=== PATIENT | female | born 1975 | race Hispanic/Latino ===

== ENCOUNTER 2024-04-06 17:16 | Emergency (ER) | payer BC, SELFPAY ==
[2024-04-06 18:13] LABS: ALT/SGPT 31 U/L (13-56); AST/SGOT 14 U/L (15-37); Albumin 3.3 g/dL (3.4-5.0); Albumin/Globulin Ratio 0.8 (1.1-1.8); Alkaline Phosphatase 91 U/L (45-117); Anion Gap 8.5 mEq/L (5.0-15.0); BUN Blood Urea Nitrogen 14 mg/dL (7-18); Bicarbonate 25 mEq/L (21-32); Bilirubin Total 0.2 mg/dL (0.2-1.0); Globulin 4.1 g/dL (2.3-3.5); Glomerular Filtration Rate 100 ml/min (=/>90); Glucose Level 116 mg/dL (74-106); Magnesium 1.9 mg/dL (1.6-2.4); NT PRO-BNP 93 pg/mL (<125); Potassium 3.5 mEq/L (3.5-5.1); Protein, Total 7.4 g/dL (6.4-8.2); Sodium Level 138 mEq/L (136-145)
[2024-04-06 18:14] LABS: Absolute Eosinophils 0.1 K/uL (0-0.5); Absolute Lymphocytes (CBC) 2.7 K/uL (0.7-4.9); Absolute Monocytes 0.4 K/uL (0.1-1.3); Absolute Neutrophil 3.6 K/uL (1.8-8.0); Basophils % 0.3 % (0-1.3); Hematocrit 39.2 % (36.0-45.0); Hemoglobin 13.3 g/dL (12.0-15.0); MCH 29.8 pg (27.0-35.0); MCHC 33.9 g/dL (32.0-36.0); MPV 7.2 fL (7.6-11.3); Monocytes % 6.1 % (3.3-12.3); Neutrophils % 52.6 % (41.7-73.7); Nucleated Red Blood Cells % 0.2 % (0-0); Platelets 169 thou/uL (152-406); RBC Red Blood Cell Count 4.46 M/uL (3.86-4.86); Red Cell Distribution Width 12.9 % (12.1-15.2)
[2024-04-06 18:15] LABS: Bilirubin Direct < 0.2 mg/dL (0-0.2); Troponin High Sensitivity < 3.0 pg/mL (<58.9)
[2024-04-06] MEDS ORDERED: ONDANSETRON 4 MG/2 ML VIAL ONE (18:28)
[2024-04-06] MEDS ORDERED: MORPHINE 4 MG/ML SYR ONE (18:28)
[2024-04-06] MEDS ORDERED: FAMOTIDINE 20 MG/2 ML VIAL IV ONE (18:28)
[2024-04-06 18:32] LABS: PT Prothrombin Time 11.5 SECONDS (9.4-12.5); Protime INR 1.1
--- NOTE | 2024-04-06 18:49 | RAD REPORT ---
EXAM: Chest Single View HISTORY: CHEST PAIN COMPARISON: None. FINDINGS: LUNGS/PLEURA: The lungs are clear. No pleural effusions or pneumothorax. No pulmonary edema. MEDIASTINUM: The mediastinal silhouette is within normal limits. CARDIAC: The cardiac silhouette is within normal limits. UPPER ABDOMEN: No significant abnormality. BONES: No acute abnormality. LINES/TUBES/OTHER: Pacemaker/ICD. IMPRESSION: No evidence of acute cardiopulmonary disease.
[2024-04-06] MEDS ORDERED: METHYLPREDNISOLONE 125 MG INJ ONE (19:19)
[2024-04-06] MEDS ORDERED: DIPHENHYDRAMINE 50 MG/ML VIAL ONE (19:19)
--- NOTE | 2024-04-06 20:11 | RAD REPORT ---
EXAMINATION: CT HEAD WITHOUT CONTRAST CLINICAL INDICATION: Female, 48 years old.HEADACHE TECHNIQUE: Axial CT images from the skull base to the vertex without intravenous contrast. Coronal an d sagittal reformatted images were created from the data set. One or more of the following dose reduction techniques were used: Automated exposure control, adjustment of the mA and/or kV according to patient size, and/or iterative reconstruction. Unless otherwise specified, incidental findings do not require dedicated imaging follow-up. [id number]. COMPARISON: No prior exam. FINDINGS: INTRACRANIAL: No acute intracranial hemorrhage. No hydrocephalus. No mass effect or midline shift. No significant white matter disease. VASCULATURE: No visualized abnormalities in the arteries or dural venous sinuses. SCALP/SKULL: No significant soft tissue or osseous abnormalities. SINUSES: The visualized paranasal sinuses and mastoid air cells are predominantly clear. IMPRESSION: No acute intracranial abnormality.
--- NOTE | 2024-04-06 20:16 | RAD REPORT ---
EXAMINATION: CTA CHEST AORTA CLINICAL INDICATION: Female, 48 years old [facility] MAIN CHEST PAIN TECHNIQUE: This examination was performed according to an angiographic protocol with 3D post-processi ng. This involves 3D reconstructions, MIPs, volume rendered images and/or shaded surface rendering. One or more of the following dose reduction techniques were used: Automated exposure control, adjustm ent of the mA and/or kV according to patient size, and/or iterative reconstruction. Unless otherwise specified, incidental findings do not require dedicated imaging follow-up. [id number]. COMPARISON: No prior exam. FINDINGS: LOWER NECK: Visualized thyroid gland and soft tissues are normal. Left upper chest wall pacemaker. LUNGS AND AIRWAYS: Airways are clear. No evidence of airspace or interstitial process.No suspicious a nd/or stable pulmonary nodules. PLEURA: No pleural effusion. No pneumothorax. Hemidiaphragms are normally positioned. MEDIASTINUM AND LYMPH NODES: No mediastinal mass or fluid collection. Normal size mediastinal, hilar, and axillary lymph nodes. THORACIC AORTA: No thoracic aortic aneurysm. PULMONARY ARTERIES: Caliber is within normal limits. No pulmonary embolus. HEART: Normal heart size. No coronary calcifications.No significant pericardial effusion. OSSEOUS STRUCTURES AND CHEST WALL: No fracture or suspicious osseous lesions. UPPER ABDOMEN: No significant abnormalities.Fat-containing left adrenal lesion consistent with a myel olipoma. This does not require follow-up. IMPRESSION: Normal caliber and configuration of the thoracic aorta without acute changes. Negative for pulmonary embolism with acute findings in the chest.
--- NOTE | 2024-04-06 21:32 | EDPHYS ---
Physician Documentation [facility] Name: Mindy Guardian Age: 48 yrs Sex: Female : 1975 Arrival Date: 04/06/2024 Time: 17:16 Bed 5 Private MD: ED Physician Melvin Grant HPI: 04/06 17:40 This 48 yrs old Female presents to ER via Ambulatory with complaints of cp Headache, Chest Pain. 17:40 The patient complains of pain to the general. The patient describes the headache as cp aching. Onset: The symptoms/episode began/occurred just prior to arrival. The patient or guardian reports chest pain that is located primarily in the anterior chest wall, left. The pain radiates to left back. Associated signs and symptoms: Pertinent negatives: altered mental status, fever, neck stiffness, paresthesias, Photophobia. TORPEDO SPECIALIST: 17:30 LMP N/A - Hysterectomy, Not db Historical: - Allergies: 17:30 Iodine; db 17:30 Ibuprofen; db - Home Meds: 17:29 Metoprolol Tartrate Oral [Active]; losartan oral [Active]; db - PMHx: 17:29 Congestive heart failure; db - PSHx: 17:28 PACEMAKER; db 18:30 Defibrillator; aa5 - Immunization history:: Adult Immunizations unknown. - Infectious Disease History:: Denies. - Social history:: Smoking status: Patient denies any tobacco usage or history of. ROS: 17:45 Constitutional: Negative for body aches, chills, fever, poor PO intake, cp 17:45 Eyes: Negative for injury, pain, redness, and discharge, cp 17:45 ENT: Negative for drainage from ear(s), ear pain, sore throat, difficulty swallowing, difficulty handling secretions, 17:45 Cardiovascular: Positive for chest pain, Negative for edema, palpitations, 17:45 Respiratory: Negative for cough, wheezing, 17:45 Abdomen/GI: Negative for abdominal pain, vomiting, diarrhea, constipation, 17:45 Neuro: Positive for headache, Negative for altered mental status, numbness, speech changes, syncope, near syncope, weakness, 17:45 All other systems are negative, Exam: 17:43 ECG was reviewed by the Attending Physician. cp 17:50 Constitutional: The patient appears in no acute distress, alert, awake, cp non-diaphoretic, non-toxic, well developed, well nourished, obese, uncomfortable, 17:50 Head/Face: Normocephalic, atraumatic. cp 17:50 Eyes: Periorbital structures: appear normal, Pupils: equal, round, and reactive to light and accomodation, Extraocular movements: intact throughout, Conjunctiva: normal, no exudate, no injection, Sclera: no appreciated abnormality, Lids and lashes: appear normal, bilaterally, 17:50 ENT: External ear(s): are unremarkable, Nose: is normal, Mouth: Lips: moist, Oral mucosa: moist, Posterior pharynx: Airway: no evidence of obstruction, patent, 17:50 Neck: ROM/movement: is normal, is supple, without pain, no range of motions limitations, 17:50 Chest/axilla: Inspection: normal, 17:50 Cardiovascular: Rate: normal, actual rate is 60 bpm, Rhythm: regular, Edema: is not appreciated, JVD: is not appreciated, 17:50 Respiratory: the patient does not display signs of respiratory distress, Respirations: normal, no use of accessory muscles, no retractions, labored breathing, is not present, Breath sounds: are clear throughout, no decreased breath sounds, no stridor, no wheezing, 17:50 Abdomen/GI: Inspection: abdomen appears normal, Palpation: abdomen is soft and non-tender, in all quadrants, 17:50 Neuro: Orientation: to person, place \T\ time. Mentation: is normal, Cerebellar function: is grossly normal, Motor: moves all fours, strength is normal, Sensation: no obvious gross deficits, Vital Signs: 17:28 BP 156 / 90; Pulse 59; Resp 18; Temp 98; Pulse Ox 98% ; db 18:30 BP 138 / 83; Pulse 60; Resp 18 S; Pulse Ox 100% on R/A; aa5 18:49 BP 119 / 73; Pulse 60; Pulse Ox 98% ; ll1 20:50 BP 121 / 65; Pulse 60; Resp 21; Pulse Ox 98% on R/A; Pain 0/10; br2 21:50 BP 108 / 69; Pulse 64; Resp 19 S; Pulse Ox 98% on R/A; Pain 0/10; br2 20:50 Pain Scale: Adult br2 21:50 Pain Scale: Adult br2 MDM: 17:32 Medical Screening Exam initiated cp 21:30 The patient was not given aspirin in the Emergency Department. Not indicated due to cp patient's past medical history. Data reviewed: vital signs, nurses notes, lab test result(s), EKG, radiologic studies, CT scan, plain films, and as a result, I will discharge patient. 21:32 I considered the following discharge prescriptions or medication management in the emergency department Medications were administered in the Emergency Department. See MAR. 21:32 ED course: Discussed results of EKG, labs, radiology studies. Repeat troponin elevated cp from initial. Discussed admission for continued monitoring and cardiac r/o. Patient declines at this time and would like to f/u outpatient with cardiology. Patient understands she can return at any time for reevaluation. 04/06 17:31 Order name: Basic Metabolic Panel; Complete Time: 18:50 cp 04/06 18:50 Interpretation: Normal except: CL 108; GLUC 116; CA 8.2. 04/06 17:31 Order name: CBC with Diff; Complete Time: 18:50 04/06 20:21 Interpretation: Normal except: MPV 7.2. 04/06 17:31 Order name: LFT's; Complete Time: 18:50 cp 04/06 17:31 Order name: Magnesium; Complete Time: 18:50 cp 04/06 17:31 Order name: NT PRO-BNP; Complete Time: 18:50 cp 04/06 17:31 Order name: PT-INR; Complete Time: 18:50 cp 04/06 17:31 Order name: Troponin HS; Complete Time: 18:50 cp 04/06 20:30 Order name: Troponin High Sensitivity; Complete Time: 21:29 cp 04/06 17:31 Order name: XRAY Chest (1 view); Complete Time: 18:50 cp 04/06 18:51 Interpretation: Report review. 04/06 18:51 Order name: CT Head Brain wo Cont; Complete Time: 20:20 cp 04/06 19:07 Order name: CT Chest Angio; Complete Time: 20:20 cp 04/06 17:31 Order name: Cardiac monitoring; Complete Time: 18:20 cp 04/06 17:31 Order name: EKG - Nurse/Tech; Complete Time: 17:50 cp 04/06 17:31 Order name: IV Saline Lock; Complete Time: 17:50 cp 04/06 17:31 Order name: Labs collected and sent; Complete Time: 17:50 cp 04/06 17:31 Order name: O2 Per Protocol; Complete Time: 18:19 cp 04/06 17:31 Order name: O2 Sat Monitoring; Complete Time: 18:19 cp 04/06 18:52 Order name: Blood Pressure Recheck: bilateral upper extremity; Complete Time: 18:54 cp EC:43 Rate is 60 beats/min. Rhythm is regular. [place] interval is prolonged at 202 msec. QRS cp interval is normal. QT interval is normal. T waves are Inverted in lead aVR. Interpreted by me. Reviewed by me. Administered Medications: 18:30 Drug: Ondansetron IVP 4 mg IVP once; over 2 minutes Route: IVP; Site: left antecubital; aa5 18:46 Follow up: Response: No adverse reaction aa5 18:30 Drug: Famotidine IVP 20 mg IVP once; dilute with 10 mL 0.9% NaCl; give over 2 minutes aa5 Route: IVP; Site: left antecubital; 18:46 Follow up: Response: No adverse reaction aa5 18:32 Drug: morphine IVP or IV 4 mg IVP once over 4 mins Route: IVP; Infused Over: 4 mins; aa5 Site: left antecubital; 18:45 Follow up: Response: No adverse reaction aa5 19:27 Drug: MethylPrednisoLONE IVP 125 mg IVP once Route: IVP; Site: left antecubital; br2 20:00 Follow up: Response: No adverse reaction br2 19:27 Drug: diphenhydrAMINE IVP 50 mg IVP once Route: IVP; Site: left antecubital; br2 20:00 Follow up: Response: No adverse reaction br2 Disposition: 04/07 17:22 Co-signature as Attending Physician, Melvin Grant MD I reviewed the patient's care rn provided by the Advanced Practice Provider and agree with the diagnosis and treatment plan. Disposition Summary: 04/06/24 21:32 Discharge Ordered Notes: Location: Home cp Problem: new cp Symptoms: have improved cp Condition: Stable cp Diagnosis - Chest pain, unspecified cp - Headache cp Followup: cp - With: Jason Pradhan MD - When: 2 - 3 days - Reason: Recheck today's complaints Discharge Instructions: - Discharge Summary Sheet cp - Nonspecific Chest Pain, Adult cp - General Headache Without Cause cp Forms: - Medication Reconciliation Form cp - Antibiotic Education cp - Prescription Opioid Use cp - Patient Portal Instructions cp - Leadership Thank You Letter cp Signatures: Dispatcher [employer] EDMS Melvin Grant MD MD rn Calderon, Audri RN RN aa5 Harvinder Eagle PA PA cp Susan Faulkner RN RN db Maranda Flores RN RN br2 Corrections: (The following items were deleted from the chart) 04/06 17:32 17:32 BASIC METABOLIC PANEL+C.LAB.BRZ ordered. EDMS EDMS 17:32 17:32 CBC+H.LAB.BRZ ordered. EDMS EDMS 17:32 17:32 HEPATIC FUNCTION+C.LAB.BRZ ordered. EDMS EDMS 17:32 17:32 MAGNESIUM+C.LAB.BRZ ordered. EDMS EDMS 17:32 17:32 PROBNP+C.LAB.BRZ ordered. EDMS EDMS 17:32 17:32 PROTIME (+INR)+COAG.LAB.BRZ ordered. EDMS EDMS 17:32 17:32 Troponin High Sensitivity+C.LAB.BRZ ordered. EDMS EDMS 17:32 17:32 Chest Single View+RAD.RAD.BRZ ordered. EDMS EDMS
--- NOTE | 2024-04-06 21:32 | ER ---
Nurse's Notes [facility] Name: Mindy Guardian Age: 48 yrs Sex: Female : 1975 Arrival Date: 04/06/2024 Time: 17:16 Bed 5 Private MD: Diagnosis: Chest pain, unspecified;Headache Presentation: 04/06 17:28 Chief complaint: Patient states: CHEST PAIN RADIATING INTO BACK X 30 MIN. AND HEADACHE. db Coronavirus screen: Client denies travel out of the [place] in the last 14 days. At this time, the client does not indicate any symptoms associated with coronavirus-19. Ebola Screen: Patient negative for fever greater than or equal to 101.5 degrees Fahrenheit, and additional compatible Ebola Virus Disease symptoms Patient denies exposure to infectious person. Patient denies travel to an Ebola-affected area in the 21 days before illness onset. No symptoms or risks identified at this time. 17:28 Method Of Arrival: Ambulatory db 17:28 Initial Sepsis Screen: Does the patient meet any 2 criteria? No. Patient's initial db sepsis screen is negative. Does the patient have a suspected source of infection? No. Patient's initial sepsis screen is negative. Risk Assessment: Do you want to hurt yourself or someone else? Patient reports no desire to harm self or others. Onset of symptoms was April 06, 2024 at 17:00. 17:28 Acuity: [place] 2 db Triage Assessment: 17:30 Headache History: The patient has had previous headaches. General: Appears in no db apparent distress. uncomfortable, Behavior is calm, cooperative. Pain: Complains of pain in chest Pain. Pain: Complains of pain in head and back of head Pain began. Neuro: Level of Consciousness is awake, alert, obeys commands, Oriented to person, place, time, situation. Neuro: Reports headache. Cardiovascular: Reports chest pain, CHEST PRESSURE AND WEAKNESS. Respiratory: Airway is patent Respiratory effort is even, unlabored, Respiratory pattern is regular, symmetrical. DICE PERSON: 17:30 LMP N/A - Hysterectomy, Not db Historical: - Allergies: 17:30 Iodine; db 17:30 Ibuprofen; db - Home Meds: 17:29 Metoprolol Tartrate Oral [Active]; losartan oral [Active]; db - PMHx: 17:29 Congestive heart failure; db - PSHx: 17:28 PACEMAKER; db 18:30 Defibrillator; aa5 - Immunization history:: Adult Immunizations unknown. - Infectious Disease History:: Denies. - Social history:: Smoking status: Patient denies any tobacco usage or history of. Screenin:30 [facility] ED Fall Risk Assessment (Adult) History of falling in the last 3 months, aa5 including since admission No falls in past 3 months (0 pts) Confusion or Disorientation No (0 pts) Intoxicated or Sedated No (0 pts) Impaired Gait No (0 pts) Mobility Assist Device Used No (0 pt) Altered Elimination No (0 pt) Score/Fall Risk Level 0 - 2 = Low Risk Oriented to surroundings, Maintained a safe environment, Educated pt \T\ family on fall prevention, incl call for assistance when getting out of bed, Assessed \T\ reinforced patient's understanding of fall precautions. Abuse screen: Denies threats or abuse. Nutritional screening: No deficits noted. Tuberculosis screening: No symptoms or risk factors identified. Assessment: 18:30 General: Appears uncomfortable, Behavior is calm, cooperative. Pain: Complains of pain aa5 in mid-sternal area, LUQ, and head Pain currently is 8 out of 10 on a pain scale. Quality of pain is described as pressure, sharp, Is continuous. Neuro: Level of Consciousness is awake, alert, obeys commands, Oriented to person, place, time, situation. Cardiovascular: Reports chest pain, Heart tones S1 S2 present Rhythm is Paced. Respiratory: Airway is patent Respiratory effort is even, unlabored, Respiratory pattern is regular, symmetrical, Denies cough, shortness of breath. GI: Abdomen is round obese, Patient currently denies diarrhea, nausea, vomiting. : No signs and/or symptoms were reported regarding the genitourinary system. EENT: No signs and/or symptoms were reported regarding the EENT system. Derm: Skin is pink, warm \T\ dry. Musculoskeletal: Range of motion: intact in all extremities. 19:38 Reassessment: Patient and/or family updated on plan of care and expected duration. Pain br2 level reassessed. Patient is alert, oriented x 3, equal unlabored respirations, skin warm/dry/pink. Patient states feeling better. Patient states symptoms have improved. Cardiovascular: Reports chest pain, INTERMITTENT SHARP/QUICK PAIN TO LEFT UPPER CHEST. PT STATES SHE IS FEELING BETTER. Capillary refill < 3 seconds Rhythm is regular Chest pain quality is sharp, is located in left anterior chest wall episodes last < 1 minute. Vital Signs: 17:28 BP 156 / 90; Pulse 59; Resp 18; Temp 98; Pulse Ox 98% ; db 18:30 BP 138 / 83; Pulse 60; Resp 18 S; Pulse Ox 100% on R/A; aa5 18:49 BP 119 / 73; Pulse 60; Pulse Ox 98% ; ll1 20:50 BP 121 / 65; Pulse 60; Resp 21; Pulse Ox 98% on R/A; Pain 0/10; br2 21:50 BP 108 / 69; Pulse 64; Resp 19 S; Pulse Ox 98% on R/A; Pain 0/10; br2 20:50 Pain Scale: Adult br2 21:50 Pain Scale: Adult br2 ED Course: 17:19 Patient arrived in ED. al6 17:30 Triage completed. db 17:30 Harvinder Eagle PA is PHCP. cp 17:30 Melvin Grant MD is Attending Physician. cp 17:30 Arm band placed on. db 17:50 Basic Metabolic Panel Sent. bc6 17:50 CBC with Diff Sent. bc6 17:50 LFT's Sent. bc6 17:50 Magnesium Sent. bc6 17:50 NT PRO-BNP Sent. bc6 17:50 PT-INR Sent. bc6 17:50 Troponin HS Sent. bc6 17:50 Initial lab(s) drawn, by la, sent to lab. Inserted saline lock: 20 gauge in left bc6 antecubital area, using aseptic technique. Blood collected. Flushed with 10 mL NS. 18:19 Luna Delgado, RN is Primary Nurse. aa5 18:30 Patient has correct armband on for positive identification. Placed in gown. Bed in low aa5 position. Call light in reach. Side rails up X2. Client placed on continuous cardiac and pulse oximetry monitoring. NIBP monitoring applied. graduate nurse on. Pulse ox on. NIBP on. 18:43 XRAY Chest (1 view) In Process Unspecified. EDMS 18:47 No provider procedures requiring assistance completed. aa5 19:00 Report received from KALLI. br2 19:08 Report given to JOJO Weber and JOJO Low. aa5 20:05 CT Head Brain wo Cont In Process Unspecified. EDMS 20:06 CT Chest Angio In Process Unspecified. EDMS 21:31 Jason Pradhan MD is Referral Physician. cp 21:50 IV discontinued, intact, bleeding controlled, No redness/swelling at site. Pressure br2 dressing applied. Administered Medications: 18:30 Drug: Ondansetron IVP 4 mg IVP once; over 2 minutes Route: IVP; Site: left antecubital; aa5 18:46 Follow up: Response: No adverse reaction aa5 18:30 Drug: Famotidine IVP 20 mg IVP once; dilute with 10 mL 0.9% NaCl; give over 2 minutes aa5 Route: IVP; Site: left antecubital; 18:46 Follow up: Response: No adverse reaction aa5 18:32 Drug: morphine IVP or IV 4 mg IVP once over 4 mins Route: IVP; Infused Over: 4 mins; aa5 Site: left antecubital; 18:45 Follow up: Response: No adverse reaction aa5 19:27 Drug: MethylPrednisoLONE IVP 125 mg IVP once Route: IVP; Site: left antecubital; br2 20:00 Follow up: Response: No adverse reaction br2 19:27 Drug: diphenhydrAMINE IVP 50 mg IVP once Route: IVP; Site: left antecubital; br2 20:00 Follow up: Response: No adverse reaction br2 Medication: 18:47 VIS not applicable for this client. aa5 Outcome: 21:32 Discharge ordered by MD. cp 21:51 Discharged to home ambulatory, br2 21:51 Condition: good 21:51 Discharge instructions given to patient, Instructed on discharge instructions, follow up and referral plans. Demonstrated understanding of instructions, follow-up care, 21:52 Patient left the ED. br2 Signatures: Dispatcher [employer] EDMS Luna Delgado RN RN aa5 Harvinder Eagle PA PA cp Pancho Hsieh RN RN ll1 Susan Faulkner RN RN db Elzbieta Patel bc6 Maranda Flores RN RN br2 Goldie Gómez al6 Corrections: (The following items were deleted from the chart) 17:30 17:28 BP 156 / 90; Pulse 59bpm; Resp 18bpm; Pulse Ox 98%; Temp 98F; db db 18:40 18:25 Ondansetron IVP 4 mg IVP in left antecubital aa5 aa5 19:40 19:05 Reassessment: Patient and/or family updated on plan of care and expected br2 duration. Pain level reassessed. Patient is alert, oriented x 3, equal unlabored respirations, skin warm/dry/pink. PT SITTING IN BED EATING WITH DAUGHTER AT BEDSIDE. PT DENIES HAVING ANY CHILLS ANYMORE. Patient denies pain at this time. Patient states feeling better. Patient states symptoms have improved. br2
[2024-04-07 02:23] VITALS: TEMP 98
[2024-04-07 02:31] VITALS: O2SAT 98
[2024-04-07 02:34] VITALS: BP 108/69
--- NOTE | 2024-04-09 12:39 | EKG ---
Test Date: 2024-04-06 Test Time: 17:37:21 Laboratory Clerk: SHASHANK MEASUREMENT RESULTS: Intervals: Rate: 60 IL: 202 QRSD: 94 QT: 424 QTc: 424 [place]: P: 86 IL: 202 QRS: 140 T: -24 INTERPRETIVE STATEMENTS: Normal sinus rhythm Low voltage QRS Borderline ECG No previous ECG available for comparison Electronically Signed On 04-09-24 12:33:20 GUIDANCE CONSULTANT by Sujit Castelan
== END 2024-04-06 21:52 | disposition home or self-care (01) ==
LOC: ER 17:16
DX: R07.9 Chest pain, unspecified (principal); R51.9 Headache, unspecified; I50.9 Heart failure, unspecified; Z95.810 Presence of automatic (implantable) cardiac defibrillator
CPT/HCPCS: 85025; 80048; 36415; 83735; 85610; 80076; 84484 ×2; 83880; 70450; 71275; 71045; 96375; 96374; 99285; Q9967; J1200; J2919; J2405; 93005

== ENCOUNTER 2024-04-22 21:52 | Emergency (ER) | payer BC ==
[2024-04-22 22:43] LABS: Absolute Eosinophils 0.1 K/uL (0-0.5); Absolute Lymphocytes (CBC) 2.8 K/uL (0.7-4.9); Absolute Monocytes 0.5 K/uL (0.1-1.3); Absolute Neutrophil 5.1 K/uL (1.8-8.0); Basophils % 0.2 % (0-1.3); Eosinophils % 1.1 % (0-4.4); Hematocrit 39.1 % (36.0-45.0); Hemoglobin 13.3 g/dL (12.0-15.0); Lymphocytes % 33.4 % (15.3-44.8); MCH 30.2 pg (27.0-35.0); MCV 88.8 fL (80-100); MPV 7.1 fL (7.6-11.3); Monocytes % 5.8 % (3.3-12.3); Neutrophils % 59.5 % (41.7-73.7); Nucleated Red Blood Cells % 0.1 % (0-0); Platelets 180 thou/uL (152-406); Red Cell Distribution Width 13.1 % (12.1-15.2)
[2024-04-22] MEDS ORDERED: ONDANSETRON 4 MG/2 ML VIAL ONE (22:47)
[2024-04-22] MEDS ORDERED: NA CHLORIDE 0.9% 1,000 ML ONE (22:47)
[2024-04-22] MEDS ORDERED: FAMOTIDINE 20 MG/2 ML VIAL IV ONE (22:47)
[2024-04-22 22:48] LABS: Specific Gravity 1.029 (1.005-1.030)
[2024-04-22 22:49] LABS: Specific Gravity 1.029 (1.005-1.030); Sqamous Epithelial <5 /HPF (None Seen); Urine Bacteria None Seen /HPF (<20); Urine Bilirubin NEGATIVE (Negative); Urine Blood Negative (Negative); Urine Clarity Clear (Clear); Urine Color Light-Yellow (Yellow); Urine Culture Reflex Order NOT NEEDED; Urine Glucose NEGATIVE (Negative); Urine Ketones NEGATIVE (Negative); Urine Microscopic Reflex YN ORDER UMIC; Urine Nitrite NEGATIVE (Negative); Urine Protein TRACE (Negative); Urine RBC <5 /HPF (None Seen); Urine Urobilinogen 1+ (Normal); Urine WBC <5 /HPF (<5)
[2024-04-22 22:56] LABS: Albumin 3.5 g/dL (3.4-5.0); Albumin/Globulin Ratio 0.9 (1.1-1.8); Anion Gap 7.6 mEq/L (5.0-15.0); Bilirubin Total 0.3 mg/dL (0.2-1.0); Globulin 3.9 g/dL (2.3-3.5); Potassium 3.6 mEq/L (3.5-5.1); Protein, Total 7.4 g/dL (6.4-8.2)
--- NOTE | 2024-04-22 23:31 | RAD REPORT ---
EXAM DESCRIPTION: Abdomen Pelvis Wo Contrast CLINICAL HISTORY: 48 years Female, ABD PAIN TECHNIQUE: Helical CT axial images are obtained from the lung bases to the pubic symphysis without IV contrast. No oral contrast was administered. Multiplanar reconstruction. This exam was performed according to our departmental dose-optimization program, which includes automated exposure control, a djustment of the mA and/or kV according to patient size and/or use of iterative reconstruction technique. COMPARISON: None. FINDINGS: LUNG BASES: No basilar consolidation or effusions. LIVER: Normal in size. Mild diffuse decreased attenuation. No focal masses. HEPATOBILIARY: Partially contracted gallbladder. No intra- or extrahepatic ductal dilatation. SPLEEN: Normal size. PANCREAS: Normal size and contour. No focal mass. ADRENAL GLANDS: Benign fat-containing left adrenal gland lesion measuring 2.2 cm compatible with myel olipoma, no further workup is warranted. KIDNEYS: Bilateral kidneys are normal in size without obstructing calculi or hydronephrosis. No nep hrolithiasis. No significant cysts are present. BOWEL AND MESENTERY: No small or large bowel dilatation. Descending and sigmoid colon diverticulosis. Normal appendix. No abnormal mesenteric lymphadenopathy. No free fluid or pneumoperitoneum. RETROPERITONEUM: Normal caliber abdominal aorta without aneurysm. No abnormal retroperitoneal lymphad enopathy. PELVIS: Urinary bladder is suboptimally distended. Status post hysterectomy. ABDOMINAL WALL: The abdominal wall is intact. BONES: No suspicious osseous lytic or blastic lesions seen. IMPRESSION: 1. No acute intra-abdominal or pelvic disease. 2. Descending and sigmoid colon diverticulosis without diverticulitis. 3. Mild hepatic steatosis. 4. Benign left adrenal gland myelolipoma, no further workup is warranted. 5. Status post hysterectomy. Electronically signed by: Christiano Amezcua MD 04/22/2024 11:24 PM [facility] N Due to temporary technical issues with the PACS/Anergis reporting system, reports are being magalie d by the in-house radiologist without review as a courtesy to ensure prompt reporting the interpreting radiologist is fully responsible for the content of the report. Transcribed Date/Time: 04/22/2024 11:30 PM
--- NOTE | 2024-04-22 23:45 | EDPHYS ---
Physician Documentation [facility] [place] Name: Mindy Guardian Age: 48 yrs Sex: Female : 1975 Arrival Date: 04/22/2024 Time: 21:52 Bed 11 Private MD: ED Physician Gomez Nayak HPI: 04/22 21:59 This 48 yrs old Female presents to ER via Unassigned with complaints of Flank kb Pain, Abdominal Pain. 21:59 Pt is a 48 year old female who presents for left upper quadrant pain that started one kb week ago. States the pain has been intermittent until today. Pain has been constant and worse today. Went to PCP and had US done, but has not received results. Denies vomiting, diarrhea, fever, urinary symptoms. Reports nausea. . 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 - Infectious Disease History:: Denies. - Social history:: Smoking status: Patient denies any tobacco usage or history of. Patient uses alcohol, but reports only rare drinking. Patient/guardian denies using street drugs. ROS: 21:59 Constitutional: As per HPI kb Exam: 21:59 Constitutional: This is a well developed, well nourished patient who is awake, alert, kb and in no acute distress. Head/Face: Normocephalic, atraumatic. ENT: Moist Mucous membranes Cardiovascular: Regular rate Respiratory: Respirations even and unlabored. No increased work of breathing. Talking in full sentences Skin: Warm, dry with normal turgor. Normal color. MS/ Extremity: Pulses equal, no cyanosis. Neurovascular intact. Full, normal range of motion. Neuro: Awake and alert, GCS 15, oriented to person, place, time, and situation. 21:59 Abdomen/GI: Inspection: abdomen appears normal, Bowel sounds: normal, Palpation: soft, in all quadrants, Vital Signs: 22:01 BP 130 / 79; Pulse 67; Resp 17 S; Temp 98.1(O); Pulse Ox 100% on R/A; Weight 102.06 kg lg3 (R); Height 5 ft. 3 in. (R); Pain 8/10; 22:01 Body Mass Index 39.86 (102.06 kg, 160.02 cm) lg3 22:01 Pain Scale: Adult lg3 MDM: 21:57 Medical Screening Exam initiated kb 23:43 Differential diagnosis: nephrolithiasis, pyelonephritis, UTI, diverticulitis, kb pancreatitis. Data reviewed: vital signs, nurses notes. 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 04/22 22:06 Order name: CBC with Diff; Complete Time: 22:48 kb 04/22 22:06 Order name: CMP; Complete Time: 22:58 kb 04/22 22:06 Order name: Lipase; Complete Time: 22:58 kb 04/22 22:06 Order name: Test, Urine; Complete Time: 22:48 kb 04/22 22:06 Order name: Urinalysis w/ reflexes; Complete Time: 22:49 kb 04/22 22:06 Order name: CT Abd/Pelvis - Without Contrast kb 04/22 22:06 Order name: IV Saline Lock; Complete Time: 22:22 kb 04/22 22:06 Order name: Labs collected and sent; Complete Time: 22:22 kb Administered Medications: 22:50 Drug: Famotidine IVP 20 mg IVP once; dilute with 10 mL 0.9% NaCl; give over 2 minutes jb4 Route: IVP; Site: right antecubital; 23:38 Follow up: Response: No adverse reaction; Marked relief of symptoms jb4 22:50 Drug: Ondansetron IVP 4 mg IVP once; over 2 minutes Route: IVP; Site: right antecubital;jb4 23:38 Follow up: Response: No adverse reaction; Marked relief of symptoms jb4 22:50 Drug: NS 0.9% IV 1000 ml IV at 1 bolus Per protocol; to be given as a bolus over 60 jb4 minutes Route: IV; Rate: 1 bolus; Site: right antecubital; 23:53 Follow up: Response: No adverse reaction; IV Status: pt discharged; IV Intake: 300ml jb4 Disposition Summary: 04/22/24 23:44 Discharge Ordered Notes: Location: Home kb Condition: Stable kb Diagnosis - Upper abdominal pain, unspecified kb Followup: kb - With: Emergency Department - When: As needed - Reason: Worsening of condition Followup: kb - With: Private Physician - When: 2 - 3 days - Reason: Recheck today's complaints, Continuance of care, Re-evaluation by your physician Discharge Instructions: - Discharge Summary Sheet kb - Abdominal Pain, Adult, [id number] kb Forms: - Medication Reconciliation Form kb - Antibiotic Education kb - Prescription Opioid Use kb - Patient Portal Instructions kb - Leadership Thank You Letter kb Prescriptions: - Zofran 4 mg Oral tablet - take 1 tablet ORAL route every 6 hours As needed; 12 tablet; Refills: 0, kb Product Selection Permitted - dicyclomine 20 mg Oral tablet - take 1 tablet ORAL route 4 times per day As needed; 20 tablet; Refills: 0, kb Product Selection Permitted Addendum: 04/24/2024 09:32 I was immediately available for consultation during this patient's visit. I did not e c2 personally see the patient or discuss the patient with the ALY[facility]. . Signatures: Dispatcher [employer] Tracey Londono, PEDRO-C COMPOUNDING PHARMACY TECHNICIAN-Poli Heredia, RN RN jb4 Rain Albrecht RN RN lg3 Gomez Nayak MD MD ec2
--- NOTE | 2024-04-22 23:45 | ER ---
Nurse's Notes [facility] [place] Name: Mindy Guardian Age: 48 yrs Sex: Female : 1975 Arrival Date: 04/22/2024 Time: 21:52 Bed 11 Private MD: Diagnosis: Upper abdominal pain, unspecified Presentation: 04/22 22:01 Chief complaint: Patient states: left upper abdominal pain and nausea X1 week and lg3 worsening. Coronavirus screen: Client denies travel out of the [place] in the last 14 days. At this time, the client does not indicate any symptoms associated with coronavirus-19. Ebola Screen: No symptoms or risks identified at this time. Initial Sepsis Screen: Does the patient meet any 2 criteria? No. Patient's initial sepsis screen is negative. Does the patient have a suspected source of infection? No. Patient's initial sepsis screen is negative. Risk Assessment: Do you want to hurt yourself or someone else? Patient reports no desire to harm self or others. Onset of symptoms is unknown. 22:01 Method Of Arrival: Ambulatory lg3 22:01 Acuity: [place] 3 lg3 Triage Assessment: 22:02 General: Appears in no apparent distress. uncomfortable, Behavior is calm, cooperative. lg3 Pain: Complains of pain in left upper quadrant Pain currently is 8 out of 10 on a pain scale. at worst was 10 out of 10 on a pain scale. Quality of pain is described as burning, heavy, squeezing, Also complains of nausea. EENT: No deficits noted. No signs and/or symptoms were reported regarding the EENT system. Neuro: No deficits noted. Henriquez Agitation-Sedation Scale (RASS): 0 - Alert and Calm Level of Consciousness is awake, alert, obeys commands, Oriented to person, place, time, situation. Cardiovascular: No deficits noted. Denies chest pain, shortness of breath, Capillary refill < 3 seconds Clubbing of nail beds is absent JVD is absent Patient's skin is warm and dry. Respiratory: No deficits noted. Airway is patent Respiratory effort is even, unlabored, Respiratory pattern is regular, symmetrical. GI: Abdomen is round non-distended, obese, Reports upper abdominal pain, nausea. : No signs and/or symptoms were reported regarding the genitourinary system. Derm: No deficits noted. No signs and/or symptoms reported regarding the dermatologic system. Skin is intact, is healthy with good turgor, Skin is dry, Skin is normal, Skin temperature is warm. Musculoskeletal: No deficits noted. No signs and/or symptoms reported regarding the musculoskeletal system. Circulation, motion, and sensation intact. Range of motion: intact in all extremities. 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 - Infectious Disease History:: Denies. - Social history:: Smoking status: Patient denies any tobacco usage or history of. Patient uses alcohol, but reports only rare drinking. Patient/guardian denies using street drugs. Screenin:52 [facility] ED Fall Risk Assessment (Adult) History of falling in the last 3 months, jb4 including since admission No falls in past 3 months (0 pts) Confusion or Disorientation No (0 pts) Intoxicated or Sedated No (0 pts) Impaired Gait No (0 pts) Mobility Assist Device Used No (0 pt) Altered Elimination No (0 pt) Score/Fall Risk Level 0 - 2 = Low Risk Oriented to surroundings, Maintained a safe environment. Abuse screen: Denies threats or abuse. Nutritional screening: No deficits noted. Tuberculosis screening: No symptoms or risk factors identified. Assessment: 23:39 Reassessment: Patient appears in no apparent distress at this time. Patient and/or jb4 family updated on plan of care and expected duration. Pain level reassessed. Patient is alert, oriented x 3, equal unlabored respirations, skin warm/dry/pink. Vital Signs: 22:01 BP 130 / 79; Pulse 67; Resp 17 S; Temp 98.1(O); Pulse Ox 100% on R/A; Weight 102.06 kg lg3 (R); Height 5 ft. 3 in. (R); Pain 8/10; 22:01 Body Mass Index 39.86 (102.06 kg, 160.02 cm) lg3 22:01 Pain Scale: Adult lg3 ED Course: 21:56 Patient arrived in ED. gm2 21:57 Tracey Mcnulty FNP-C is [facility]. kb 21:57 Gomez Nayak MD is Attending Physician. kb 22:02 Triage completed. lg3 22:02 Arm band placed on right wrist. lg3 22:22 CBC with Diff Sent. jb4 22:22 Lipase Sent. jb4 22:22 Test, Urine Sent. jb4 22:22 Urinalysis w/ reflexes Sent. jb4 22:22 CMP Sent. jb4 22:46 CT Abd/Pelvis - Without Contrast In Process Unspecified. EDMS 23:52 Patient has correct armband on for positive identification. Bed in low position. Call jb4 light in reach. Side rails up X 1. Provided Education on: discharge instructions.. 23:52 No provider procedures requiring assistance completed. IV discontinued, intact, jb4 bleeding controlled, No redness/swelling at site. Administered Medications: 22:50 Drug: Famotidine IVP 20 mg IVP once; dilute with 10 mL 0.9% NaCl; give over 2 minutes jb4 Route: IVP; Site: right antecubital; 23:38 Follow up: Response: No adverse reaction; Marked relief of symptoms jb4 22:50 Drug: Ondansetron IVP 4 mg IVP once; over 2 minutes Route: IVP; Site: right antecubital;jb4 23:38 Follow up: Response: No adverse reaction; Marked relief of symptoms jb4 22:50 Drug: NS 0.9% IV 1000 ml IV at 1 bolus Per protocol; to be given as a bolus over 60 jb4 minutes Route: IV; Rate: 1 bolus; Site: right antecubital; 23:53 Follow up: Response: No adverse reaction; IV Status: pt discharged; IV Intake: 300ml jb4 Medication: 23:52 VIS not applicable for this client. jb4 Intake: 23:53 IV: 300ml; Total: 300ml. jb4 Outcome: 23:44 Discharge ordered by . kb 23:52 Discharged to home ambulatory, jb4 23:52 Condition: stable 23:52 Discharge instructions given to patient, Instructed on discharge instructions, follow up and referral plans. Demonstrated understanding of instructions, follow-up care, medications, Prescriptions given X 2, 23:54 Patient left the ED. jb4 Signatures: Dispatcher [employer] EDKY Tracey Mcnulty FNP-C FNP-Ckb Poli Emmanuel, RN RN jb4 Rain Albrecht RN RN lg3 Clary Valenzuela gm2
[2024-04-23 10:22] VITALS: BP 130/79; TEMP 98.1; O2SAT 100
== END 2024-04-22 23:54 | disposition home or self-care (01) ==
LOC: ER 21:52
DX: R10.12 Left upper quadrant pain (principal); R11.0 Nausea; Z95.810 Presence of automatic (implantable) cardiac defibrillator
CPT/HCPCS: 96361; 85025; 81001; 36415; 81025; 83690; 80053; 74176; 96375; 96374; 99284; J2405; J7030